=== PATIENT | female | born 1965 ===

== ENCOUNTER → 2020-06-10 12:56 | Outpatient (BNVA) | payer MEDICAID, SELFPAY | PROVIDERS: Visit Provider Licensed Practical Nurse | DX: M79.604 Pain in right leg (principal); Z87.81 Personal history of (healed) traumatic fracture | CPT/HCPCS: 99203 ==

== ENCOUNTER → 2020-08-04 09:20 | Outpatient (BNVA) | payer MEDICAID, SELFPAY | PROVIDERS: Visit Provider Specialist | DX: M79.604 Pain in right leg (principal); G57.30 Lesion of lateral popliteal nerve, unspecified lower limb; Z87.81 Personal history of (healed) traumatic fracture; F40.298 Other specified phobia; F17.210 Nicotine dependence, cigarettes, uncomplicated | CPT/HCPCS: 95909; G0463 ==

== ENCOUNTER → 2020-09-02 10:40 | Outpatient (BNVA) | payer MEDICAID, SELFPAY | PROVIDERS: PCP General Practice; Visit Provider Licensed Practical Nurse | DX: G57.31 Lesion of lateral popliteal nerve, right lower limb (principal); Z87.81 Personal history of (healed) traumatic fracture; M54.5 Low back pain; F17.210 Nicotine dependence, cigarettes, uncomplicated | CPT/HCPCS: 99213 ==